=== PATIENT | female | born 1995 | race Caucasian/White ===

== ENCOUNTER 2018-12-07 10:45 | Emergency (ER) | payer MEDICAID ==
[2018-12-07] MEDS ORDERED: IOVERSOL 320 100 ML VIAL IVP ONE ×2 (10:46→13:48)
--- NOTE | 2018-12-07 11:13 | ED Physician Documentation ---
PD HPI ABD PAIN - Stated complaint Stated Complaint: ABD PX - Chief complaint Chief Complaint: Abd Pain - History obtained from History obtained from: Patient - History of Present Illness Timing - onset: How many days ago (5) Timing - details: Gradual onset, Waxing and waning Quality: Cramping, Aching, Pain Location: RUQ, Epigastric Radiation: No: Lower back, Upper back Improved by: No: Vomiting Worsened by: Eating Associated symptoms: No: Fever, Nausea, Vomiting, Diarrhea, Dysuria, Hematuria Similar symptoms before: Has not had sx before Recently seen: Not recently seen Review of Systems Constitutional: denies: Fever, Chills, Myalgias Nose: denies: Rhinorrhea / runny nose, Congestion, Foreign Body Cardiac: denies: Chest pain / pressure Respiratory: denies: Dyspnea, Cough GI: reports: Abdominal Pain, Nausea. denies: Vomiting, Diarrhea, Bloody / black stool : reports: Other (she t=hinks she was early and had miscarriage about 4-5 weeks ago and has had some intermittnet pelvic cramping with some spotting like early menses the past few days.). denies: Dysuria, Frequency, Incontinent Skin: denies: Rash, Lesions PD PAST MEDICAL HISTORY - Past Medical History Past Medical History: No Cardiovascular: None Respiratory: None Neuro: None Endocrine/Autoimmune: None GI: None PRODUCTION CONTROL CLERK: None : None HEENT: None Psych: None Musculoskeletal: None Derm: None - Past Surgical History Past Surgical History: No - Present Medications Home Medications: Ambulatory Orders Medication Instructions Recorded Confirmed Famotidine 20 mg PO DAILY #30 tablet 12/07/18 Hydrocodone/Acetaminophen [Deville 1 each PO Q6H PRN #15 tablet 12/07/18 5-325 Tablet] Ondansetron Odt [Zofran] 4 mg TL Q6H PRN #10 tablet 12/07/18 Sucralfate [Carafate] 1 gm PO ACHS #28 tablet 12/07/18 - Allergies Allergies/Adverse Reactions: Allergies Allergy/AdvReac Type Severity Reaction Status Date / Time No Known Drug Allergies Allergy Verified 12/07/18 10:51 - Social History Does the pt smoke?: No Smoking Status: Never smoker Does the pt drink ETOH?: Yes ETOH Use: Beer Does the pt have substance abuse?: No - Immunizations Immunizations are current?: Yes - POLST Patient has POLST: No PD ED PE NORMAL - Vitals Vital signs reviewed: Yes - General General: Alert and oriented X 3, No acute distress, Well developed/nourished - HEENT HEENT: Atraumatic, PERRL, Ears normal - Neck Neck: Supple, no meningeal sign, No adenopathy - Cardiac Cardiac: RRR, No murmur - Abdomen Abdomen: Soft, Other (tender RUQ area, with some percussion tenderness. Decreased bowel sounds. ). No: Normal bowel sounds - Female Female : Deferred - Rectal Rectal: Deferred - Back Back: No CVA TTP - Derm Derm: Normal color, Warm and dry, No rash - Extremities Extremities: No tenderness to palpate, Normal ROM s pain - Neuro Neuro: Alert and oriented X 3, No motor deficit Results - Vitals Vitals: Vital Signs - 24 hr 12/07/18 12/07/18 10:49 16:03 Temperature 36 C L 36.7 C Heart Rate 92 59 L Respiratory 16 16 Rate Blood Pressure 138/86 H 130/73 O2 Saturation 98 98 Oxygen O2 Source Room air - Labs Labs: Laboratory Tests 12/07/18 12/07/18 12/07/18 11:11 11:11 11:50 WBC 10.2 RBC 4.84 Hgb 14.7 Hct 42.7 MCV 88.3 MCH 30.3 MCHC 34.3 RDW 12.8 Plt Count 224 MPV 8.4 Neut # (Auto) 7.9 H Lymph # (Auto) 1.5 [place] # (Auto) 0.5 Eos # (Auto) 0.3 Baso # (Auto) 0.1 Absolute Nucleated RBC 0.00 Nucleated RBC % 0.0 Sodium Potassium Chloride Carbon Dioxide Anion Gap BUN Creatinine Estimated GFR (MDRD) Glucose Calcium Total Bilirubin AST ALT Alkaline Phosphatase Total Protein Albumin Globulin Albumin/Globulin Ratio Lipase Urine Color YELLOW Urine Clarity HAZY Urine pH 5.0 Ur Specific [place] >=1.030 H >=1.030 H Urine Protein NEGATIVE Urine Glucose (UA) NEGATIVE Urine Ketones NEGATIVE Urine Occult Blood LARGE H Urine Nitrite NEGATIVE Urine Bilirubin NEGATIVE Urine Urobilinogen 0.2 (NORMAL) Ur Leukocyte Esterase NEGATIVE Urine RBC TNTC H Urine WBC 0-3 Ur Squamous Epith Cells FEW Squamous Urine Bacteria Few Ur Microscopic Review INDICATED Urine Culture Comments NOT INDICATED Urine HCG, Qual NEGATIVE 12/07/18 11:50 WBC RBC Hgb Hct MCV MCH MCHC RDW Plt Count MPV Neut # (Auto) Lymph # (Auto) [place] # (Auto) Eos # (Auto) Baso # (Auto) Absolute Nucleated RBC Nucleated RBC % Sodium 139 Potassium 4.0 Chloride 106 Carbon Dioxide 22 Anion Gap 11.0 BUN 11 Creatinine 0.7 Estimated GFR (MDRD) 104 Glucose 103 H Calcium 9.0 Total Bilirubin 1.7 H AST 52 H ALT 80 H Alkaline Phosphatase 59 Total Protein 7.4 Albumin 4.4 Globulin 3.0 Albumin/Globulin Ratio 1.5 Lipase 39 Urine Color Urine Clarity Urine pH Ur Specific [place] Urine Protein Urine Glucose (UA) Urine Ketones Urine Occult Blood Urine Nitrite Urine Bilirubin Urine Urobilinogen Ur Leukocyte Esterase Urine RBC Urine WBC Ur Squamous Epith Cells Urine Bacteria Ur Microscopic Review Urine Culture Comments Urine HCG, Qual - Rads (name of study) RUQ sbd u/S Radiology: Prelim report reviewed (i thought it would be gallbladder, but appears normal on U/S. then got CT to ensure not missing unusual placement of appendix or such. This was okay as well. ), EMP read contemporaneously, See rad report abd/pelvic CT Radiology: Prelim report reviewed (no acute process to account for the pain. ), EMP read contemporaneously, See rad report PD MEDICAL DECISION MAKING - ED course Complexity details: reviewed results, re-evaluated patient, considered differential, d/w patient Departure - Departure Disposition: 01 Home, Self Care Clinical Impression: Abdominal pain Qualifiers: Abdominal location: right upper quadrant Qualified Code(s): R10.11 - Right upper quadrant pain Condition: Stable Record reviewed to determine appropriate education?: Yes Instructions: ED Abdominal Pain Unkn Cause Prescriptions: Famotidine 20 mg PO DAILY #30 tablet Hydrocodone/Acetaminophen [Deville 5-325 Tablet] 1 each PO Q6H PRN #15 tablet PRN Reason: Pain Ondansetron Odt [Zofran] 4 mg TL Q6H PRN #10 tablet PRN Reason: Nausea / Vomiting Sucralfate [Carafate] 1 gm PO ACHS #28 tablet Comments: Drink lots of fluids. Your tests do not show the cause of the pain. Presume some irritation of the stomach or initial part of the intestine. Try famotidine acid reducing medicine daily for the next couple of weeks and also Carafate to coat the stomach and initial intestines 3-4 times a day for the next week. Ondansetron if needed for nausea. Add Tylenol or hydrocodone if needed for pain. Recheck with your primary care in the next 2-3 days, call for an appointment. Discharge Date/Time: 12/07/18 16:43
[2018-12-07 11:26] LABS: BILIRUBIN,URINE NEGATIVE (NEGATIVE); GLUCOSE, URINE (UA) NEGATIVE (NEGATIVE); KETONES,URINE (UA) NEGATIVE (NEGATIVE); LEUKOCYTE ESTERASE, URINE NEGATIVE (NEGATIVE); NITRITE,URINE NEGATIVE (NEGATIVE); OCCULT BLOOD,URINE LARGE (NEGATIVE); PROTEIN,URINE NEGATIVE (NEGATIVE); UROBILINOGEN,URINE 0.2 (NORMAL) E.U./dL (NORMAL)
[2018-12-07] MEDS ORDERED: ONDANSETRON 4 MG/2 ML VIAL IVP STA (11:29)
[2018-12-07] MEDS ORDERED: MORPHINE 10 MG/ML VIAL IVP STA ×2 (11:29→13:22)
[2018-12-07] MEDS ORDERED: SODIUM CHLORIDE 0.9% 1,000 ML IV ONE ×2 (11:29→13:23)
[2018-12-07 11:30] LABS: CLARITY,URINE HAZY (CLEAR); HCG UR QUAL NEGATIVE
[2018-12-07 11:37] LABS: BACTERIA,URINE Few /HPF (None Seen); RBC,URINE TNTC /HPF (0-5); SQUAMOUS EPITHELIAL CELL,UR FEW Squamous (<= Few)
[2018-12-07 12:03] LABS: BASOPHILS # (AUTO) 0.1 10^3/uL (0.0-0.1); BASOPHILS % (AUTO) 0.5 %; EOSINOPHILS # (AUTO) 0.3 10^3/uL (0.0-0.7); HGB - HEMOGLOBIN 14.7 g/dL (12.0-16.0); LYMPHOCYTES # (AUTO) 1.5 10^3/uL (1.5-3.5); LYMPHOCYTES % (AUTO) 14.3 %; MEAN CORPUSCULAR HEMOGLOBIN 30.3 pg (27.0-31.0); MEAN CORPUSCULAR HGB CONC 34.3 g/dL (32.0-36.0); MEAN CORPUSCULAR VOLUME 88.3 fL (81.0-99.0); MEAN PLATELET VOLUME 8.4 fL (7.9-10.8); MONOCYTES # (AUTO) 0.5 10^3/uL (0.0-1.0); MONOCYTES % (AUTO) 5.3 %; NEUTROPHILS # (AUTO) 7.9 10^3/uL (1.5-6.6); NEUTROPHILS % (AUTO) 76.9 %; PLT - PLATELET COUNT 224 10^3/uL (130-450); RED BLOOD COUNT 4.84 10^6/uL (4.20-5.40); RED CELL DISTRIBUTION WIDTH 12.8 % (12.0-15.0); WHITE BLOOD COUNT 10.2 x10^3/uL (4.8-10.8)
[2018-12-07 12:12] LABS: ALBUMIN 4.4 g/dL (3.2-5.5); ALBUMIN/GLOBULIN RATIO 1.5 (1.0-2.2); BILIRUBIN,TOTAL 1.7 mg/dL (0.2-1.0); CREATININE 0.7 mg/dL (0.4-1.0); TOTAL PROTEIN 7.4 g/dL (6.7-8.2)
--- NOTE | 2018-12-07 13:03 | Ultrasound Report ---
Reason: RUQ pain for 5 days, intermittent, worse today Procedure Date: 12/07/2018 Accession Number: [id number] / [id number] Procedure: US - Abdomen Limited CPT Code: FULL RESULT: EXAM: ABDOMEN ULTRASOUND LIMITED, RUQ EXAM DATE: 12/07/2018 12:49 PM. CLINICAL HISTORY: RUQ pain for 5 days, intermittent, worse today. COMPARISON: None. TECHNIQUE: Real-time scanning was performed with static images obtained. FINDINGS: Liver: Dense echogenic hepatic parenchyma. No hepatic lesions. No intrahepatic ductal dilatation. The liver is not enlarged, 15.6 cm. Main portal vein flow: Hepatopetal. Gallbladder: Normal. No stones, wall thickening, or sonographic Yu's sign. Biliary System: CBD measures 3-4 mm. No intrahepatic or extrahepatic ductal dilatation. Other: Right kidney is normal in contour and echotexture and measures 10.5 cm. No hydronephrosis. IMPRESSION: 1. Fatty liver. 2. Normal gallbladder. No biliary ductal dilatation. RADIA
[2018-12-07] MEDS ORDERED: PROCHLORPERAZINE 10 MG/2 ML VIAL IVP STA (13:22)
--- NOTE | 2018-12-07 14:14 | CT Report ---
Reason: RUQ/right mid abd pain for 5 days Procedure Date: 12/07/2018 Accession Number: [id number] / [id number] Procedure: CT - Abdomen/Pelvis W/ CPT Code: FULL RESULT: EXAM: CT ABDOMEN AND PELVIS EXAM DATE: 12/07/2018 01:57 PM. CLINICAL HISTORY: Abdominal pain COMPARISONS: None. TECHNIQUE: Routine helical CT imaging was performed through the abdomen and pelvis. IV contrast: OPTI 320 90 ML. Enteric contrast: No. Reconstructions: Coronal and sagittal. In accordance with CT protocol optimization, one or more of the following dose reduction techniques were utilized for this exam: automated exposure control, adjustment of mA and/or KV based on patient size, or use of iterative reconstructive technique. FINDINGS: Lung Bases: Unremarkable. Liver: There is hepatic steatosis. No focal hepatic lesions are seen. Gallbladder/Bile Ducts: Unremarkable. Spleen: There is a rounded hypodensity within the anterior spleen. It measures 7 cm in diameter. This probably represents a cyst. Pancreas: Normal. Adrenal Glands: Normal. Kidneys: Normal. No masses or hydronephrosis. Peritoneal Cavity/Bowel: Normal. No free fluid, free air or adenopathy. No masses or acute inflammatory process. The appendix is well visualized and normal. Pelvic Organs: Normal. The bladder and visualized pelvic organs are within normal limits. Vasculature: No aneurysms or other significant abnormality. Bones: No significant abnormality. Other: None. IMPRESSION: 1. No acute solid or hollow viscus organ abnormalities to account for the patient's presentation. 2. There is hepatic steatosis. 3. There is a 7 cm rounded hypodensity within the anterior spleen. This may represent a cyst. RADIA
[2018-12-07] MEDS ORDERED: KETOROLAC 15 MG/ML VIAL IVP STA (15:25)
[2018-12-07] MEDS ORDERED: SUCRALFATE 1 GM/10 ML UDC PO STA (15:26)
[2018-12-07] MEDS ORDERED: FAMOTIDINE 20 MG/2 ML VIAL IVP STA (15:26)
[2018-12-07 16:05] VITALS: BP 130/73
[2018-12-09] MEDS ORDERED: IOVERSOL 320 100 ML VIAL IVP ONE (09:02)
== END 2018-12-07 16:43 | disposition home or self-care (01) ==
LOC: ED 10:45
DX: R10.11 Right upper quadrant pain (principal)
CPT/HCPCS: 36415; 74177; 76705; 80053; 81001; 81025; 83690; 85025; 96361; 96374; 96375; 99283; A9270; Q9967; 81003; 87086